=== PATIENT | female | born 1995 | race Caucasian/White ===

== ENCOUNTER 2021-08-17 11:51 | Emergency (ER) | payer BC, OTHER ==
--- NOTE | 2021-08-17 14:43 | EDM.PDOC ---
ED HPI GENERAL MEDICAL PROBLEM - General Chief Complaint: HOOKMAN Problem Stated Complaint: 7 WEEKS /BLEEDING Time Seen by Provider: 08/17/21 14:34 Source of Information: Reports: Patient History Limitations: Reports: No Limitations - History of Present Illness INITIAL COMMENTS - FREE TEXT/NARRATIVE: HISTORY AND PHYSICAL: History of present illness: The patient is a 25 year old female who presents to the ED with complaints of a blood clot upon voiding. The patient denies vaginal bleeding and does nt have any cramping. The patient has one previous live without difficulty. The patient has had a cough for a week. She has associated it with her allergies. Patient denies any fever, chills, headache, change in vision, syncope or near syncope. Denies any chest pain, back pain, or shortness of breath. Denies any abdominal pain, nausea, vomiting, diarrhea, constipation or dysuria. Has not noted any blood in urine or stool. Patient has been eating and drinking ap propriately. Review of systems: As per history of present illness and below otherwise all systems reviewed and negative. Past medical history: As per history of present illness and as reviewed below otherwise noncontributory. Surgical history: As per history of present illness and as reviewed below otherwise noncontributory. Social history: See social history for further information Family history: As per history of present illness and as reviewed below otherwise noncontributory. Physical exam: General: Well developed and well nourished. Alert and orientated x 3. Nontoxic in appearance and in no acute distress. Vital signs are stable and have been reviewed by me. Nursing notes were reviewed. HEENT: Atraumatic, normocephalic, pupils equal and reactive bilaterally, negative for conjunctival pallor or scleral icterus, mucous membranes moist, TMs normal bilaterally, throat clear, neck supple, nontender, trachea midline. No drooling or trismus noted. No meningeal signs. No hot potato voice noted. Lungs: Clear to auscultation bilaterally. No wheezes, rales, or rhonchi. Chest nontender. Normal work of breathing, no accessory muscles used. Heart: S1S2, regular rate and rhythm without overt murmur, gallops, or rubs. No JVD. No peripheral edema Abdomen: Soft, nondistended, nontender. Normoactive bowel sounds. Negative for masses or costovertebral tenderness. Pelvis: Stable nontender. Genitourinary: Normal hair distribution, no lesions, masses, or swelling. Labia majora pink, smooth, and free of lesions, excoriation, and swelling. Lania minora dark pink, moist, and free of lesions, excoriation, swelling or discharge. No discharge from urethral opening. No malodorous discharge noted from vagina. Cervix was closed. Skin: Intact, warm, dry. No lesions or rashes noted. Hematologic: No petechiae or purpra. Mucosa appropriate color and normal nail bed color and refill. Extremities: Atraumatic, moves all extremities per self without difficulty or deficits, negative for cords or calf pain. Neurovascular unremarkable. Neuro: Awake, alert, oriented. Cranial nerves II through XII unremarkable. Cerebellum unremarkable. Motor and sensory unremarkable throughout. Exam nonfocal. Psychiatric: Mood and affect are appropriate. Normal thought process. Answering questions appropriately. Notes: *This patient was seen and evaluated during the 2019 SARS-CoV-2 novel sal navirus pandemic period. Community viral transmission is ongoing at time of this encounter and the emergency department is operating under pandemic response procedures. As stated above the patient is a 25 year old who presents due to a blood clot. She denies vaginal bleeding. she denies cramping. Dr. Chambers order labs, and an US while the patient was in the waiting room. I agree with the orders. The OB US IMPRESSION: 1. Single living intrauterine gestation with crown rump length 0.59 cm which corresponds to a gestational age of 6 weeks 3 days with a sonographic due date of 04/09/2022. 2. The clinical gestational age by LMP is 7 weeks 2 days. 3. Probable corpus luteum in the left ovary. The patient's CBC is unremarkable. The patient's CMP is [place]remarkable[place] [address].0. The patient's urine does not show an infection. The patient's influenza is negative. The patient's COVID-19 is positive. I did the vaginal exam and did not see any blood in the vaginal vault. The cervical os was closed. I informed the findings of the lab results to the patient and the findings of the vaginal exam to the patient. The patient will follow up with an HOOKMAN. The patient states that she already has 1 picked up and will call them tomorrow. Patient is agreeable with this discharge plan. I have talked with the patient about today's findings, in addition to providing specific details for plan of care. Reassessment at the time of disposition demonstrates that the patient is in no acute distress. The patient is stable for discharge, counseling was provided and we discussed in great detail signs and symptoms that would prompt them to return to the Emergency Department. Medication, follow up and supportive care measures were reviewed and discussed. Voices understanding and is agreeable to plan of care. Denies any further questions or concerns at this time. Diagnostics: CBC, CMP, hCG quantitative, UA, ultrasound OB Impression: Intrauterine Plan: 1a. You were evaluated today on an emergent basis. Your concerns regarding the blood clot that you experience was evaluated with an ultra sound that IMPRESSION: 1. Single living intrauterine gestation with crown rump length 0.59 cm which corresponds to a gestational age of 6 weeks 3 days with a sonographic due date of 04/09/2022. 2. The clinical gestational age by LMP is 7 weeks 2 days. 3. Probable corpus luteum in the left ovary. Your blood work was normal. Your cervix was closed and I did not see any blood in the vagina. If you have bleeding or cramping please return to the ED. 1b. Your COVID-19 screening is positive. That means you do have the coronavirus and you are considered contagious. Your vital signs and oxygen saturation are well enough that you were able to monitor your symptoms at home. Continue to monitor for trouble breathing, new confusion or inability to arouse, bluish lips or face or any of the other symptoms we discussed -if this occurs please return to the emergency room. 2. Please self quarantine until cleared by [facility]. Inform any persons that you have been in contact with since you started becoming symptomatic that you have tested positive; they should be made aware and take the appropriate steps as needed. 3. You can take NyQuil during the evening to help get a restful night sleep. May alternate Tylenol and ibuprofen as needed for pain and fever management. 4. The [facility] department will be calling you and following up with you. The [place] COVID 19 Hotline phone number , They are open Tuesday - Tuesday 7am - 7pm. Follow up with your primary care provider for re-evaluation and re-testing after the 10 day quarantine and discuss when you should be seen. Definitive disposition and diagnosis as appropriate pending reevaluation and review of above. - Related Data Allergies Allergy/AdvReac Type Severity Reaction Status Date / Time No Known Allergies Allergy Verified 08/17/21 13:59 Home Meds: Home Meds . [No Known Home Meds] 05/16/16 [History] Past Medical History - Past Health History Medical/Surgical History: Denies Medical/Surgical History Social & Family History - Family History Family Medical History: No Pertinent Family History - Tobacco Use Second Hand Smoke Exposure: No - Caffeine Use Caffeine Use: Reports: None - Recreational Drug Use Recreational Drug Use: No ED ROS GENERAL - Review of Systems Review Of Systems: Comprehensive ROS is negative, except as noted in HPI. ED EXAM, GENERAL - Physical Exam Exam: See Below (See dictation) Course - Vital Signs Last Recorded V/S: Last Vital Signs Temp 97.3 F 08/17/21 13:55 Pulse 86 08/17/21 16:56 Resp 18 08/17/21 16:56 BP 126/86 08/17/21 16:56 Pulse Ox 97 08/17/21 16:56 - Orders/Labs/Meds Labs: Laboratory Tests 08/17/21 08/17/21 08/17/21 Range/Units 15:27 15:29 15:36 WBC 9.31 (4.0-11.0) K/uL RBC 4.81 (4.30-5.90) M/uL Hgb 14.2 (12.0-16.0) g/dL Hct 41.9 (36.0-46.0) % MCV 87.1 (80.0-98.0) fL MCH 29.5 (27.0-32.0) pg MCHC 33.9 (31.0-37.0) g/dL RDW Std Deviation 41.6 (28.0-62.0) fl RDW Coeff of Connor 13 (11.0-15.0) % Plt Count 249 (150-400) K/uL MPV 9.40 (7.40-12.00) fL Neut % (Auto) 74.8 (48.0-80.0) % Lymph % (Auto) 18.4 (16.0-40.0) % [place] % (Auto) 6.3 (0.0-15.0) % Eos % (Auto) 0.4 (0.0-7.0) % Baso % (Auto) 0.1 (0.0-1.5) % Neut # (Auto) 7.0 H (1.4-5.7) K/uL Lymph # (Auto) 1.7 (0.6-2.4) K/uL [place] # (Auto) 0.6 (0.0-0.8) K/uL Eos # (Auto) 0.0 (0.0-0.7) K/uL Baso # (Auto) 0.0 (0.0-0.1) K/uL Nucleated RBC % 0.0 /100WBC Nucleated RBCs # 0 K/uL Sodium (136-145) mmol/L Potassium (3.5-5.1) mmol/L Chloride (98-107) mmol/L Carbon Dioxide (21.0-32.0) mmol/L BUN (7.0-18.0) mg/dL Creatinine (0.6-1.0) mg/dL Est Cr Clr Drug Dosing Estimated GFR (MDRD) ml/min Glucose (74-106) mg/dL Calcium (8.5-10.1) mg/dL Total Bilirubin (0.2-1.0) mg/dL AST (15-37) IU/L ALT (14-63) IU/L Alkaline Phosphatase (46-116) U/L Total Protein (6.4-8.2) g/dL Albumin (3.4-5.0) g/dL Globulin (2.6-4.0) g/dL Albumin/Globulin Ratio (0.9-1.6) HCG, Quant mIU/mL Urine Color YELLOW Urine Appearance SLT CLOUDY Urine pH 5.5 (5.0-8.0) Ur Specific [place] >= 1.030 (1.001-1.035) Urine Protein NEGATIVE (NEGATIVE) mg/dL Urine Glucose (UA) NEGATIVE (NEGATIVE) mg/dL Urine Ketones 40 H (NEGATIVE) mg/dL Urine Occult Blood MODERATE H (NEGATIVE) Urine Nitrite NEGATIVE (NEGATIVE) Urine Bilirubin SMALL H (NEGATIVE) Urine Urobilinogen 1.0 (<2.0) EU/dL Ur Leukocyte Esterase TRACE H (NEGATIVE) Urine RBC 3-4 (0-2/HPF) Urine WBC 0-2 (0-5/HPF) Ur Epithelial Cells OCCASIONAL (NONE-FEW) Urine Bacteria FEW (NEGATIVE) Urine Mucus LIGHT (NONE-MOD) Influenza Type A RNA NEGATIVE (NEGATIVE) Influenza Type B RNA NEGATIVE (NEGATIVE) SARS-CoV-2 RNA ([place]) POSITIVE H (NEGATIVE) Blood Type 08/17/21 08/17/21 Range/Units 15:36 15:36 WBC (4.0-11.0) K/uL RBC (4.30-5.90) M/uL Hgb (12.0-16.0) g/dL Hct (36.0-46.0) % MCV (80.0-98.0) fL MCH (27.0-32.0) pg MCHC (31.0-37.0) g/dL RDW Std Deviation (28.0-62.0) fl RDW Coeff of Connor (11.0-15.0) % Plt Count (150-400) K/uL MPV (7.40-12.00) fL Neut % (Auto) (48.0-80.0) % Lymph % (Auto) (16.0-40.0) % [place] % (Auto) (0.0-15.0) % Eos % (Auto) (0.0-7.0) % Baso % (Auto) (0.0-1.5) % Neut # (Auto) (1.4-5.7) K/uL Lymph # (Auto) (0.6-2.4) K/uL [place] # (Auto) (0.0-0.8) K/uL Eos # (Auto) (0.0-0.7) K/uL Baso # (Auto) (0.0-0.1) K/uL Nucleated RBC % /100WBC Nucleated RBCs # K/uL Sodium 137 (136-145) mmol/L Potassium 4.0 (3.5-5.1) mmol/L Chloride 100 (98-107) mmol/L Carbon Dioxide 24.2 (21.0-32.0) mmol/L BUN 10 (7.0-18.0) mg/dL Creatinine 0.7 (0.6-1.0) mg/dL Est Cr Clr Drug Dosing TNP Estimated GFR (MDRD) > 60.0 ml/min Glucose 87 (74-106) mg/dL Calcium 9.2 (8.5-10.1) mg/dL Total Bilirubin 0.4 (0.2-1.0) mg/dL AST 15 (15-37) IU/L ALT 26 (14-63) IU/L Alkaline Phosphatase 86 (46-116) U/L Total Protein 8.1 (6.4-8.2) g/dL Albumin 3.6 (3.4-5.0) g/dL Globulin 4.5 H (2.6-4.0) g/dL Albumin/Globulin Ratio 0.8 L (0.9-1.6) HCG, Quant 33062.0 mIU/mL Urine Color Urine Appearance Urine pH (5.0-8.0) Ur Specific [place] (1.001-1.035) Urine Protein (NEGATIVE) mg/dL Urine Glucose (UA) (NEGATIVE) mg/dL Urine Ketones (NEGATIVE) mg/dL Urine Occult Blood (NEGATIVE) Urine Nitrite (NEGATIVE) Urine Bilirubin (NEGATIVE) Urine Urobilinogen (<2.0) EU/dL Ur Leukocyte Esterase (NEGATIVE) Urine RBC (0-2/HPF) Urine WBC (0-5/HPF) Ur Epithelial Cells (NONE-FEW) Urine Bacteria (NEGATIVE) Urine Mucus (NONE-MOD) Influenza Type A RNA (NEGATIVE) Influenza Type B RNA (NEGATIVE) SARS-CoV-2 RNA ([place]) (NEGATIVE) Blood Type A POSITIVE Departure - Departure Time of Disposition: 16:46 Disposition: Home, Self-Care 01 Condition: Good Clinical Impression: Intrauterine normal Qualifiers: Trimester: first trimester Qualified Code(s): Z34.91 - Encounter for supervision of normal , unspecified, first trimester - Discharge Information *PRESCRIPTION DRUG MONITORING PROGRAM REVIEWED*: Not Applicable *COPY OF PRESCRIPTION DRUG MONITORING REPORT IN PATIENT CELINA: Not Applicable Instructions: Care Referrals: Lu Anne DO [Primary Care Provider] - Forms: ED Department Discharge Additional Instructions: The following information is given to patients seen in the emergency department who are being discharged to home. This information is to outline your options for follow-up care. We provide all patients seen in our emergency department with a follow-up referral. The need for follow-up, as well as the timing and circumstances, are variable depending upon the specifics of your emergency department visit. If you don't have a primary care physician on staff, we will provide you with a referral. We always advise you to contact your personal physician following an emergency department visit to inform them of the circumstance of the visit and for follow-up with them and/or the need for any referrals to a consulting specialist. The emergency department will also refer you to a specialist when appropriate. This referral assures that you have the opportunity for follow-up care with a specialist. All of these measure are taken in an effort to provide you with optimal care, which includes your follow-up. Under all circumstances we always encourage you to contact your private physician who remains a resource for coordinating your care. When calling for follow-up care, please make the office aware that this follow-up is from your recent emergency room visit. If for any reason you are refused follow-up, please contact the [facility] Emergency Department at and asked to speak to the emergency department charge nurse. [facility] [address] [place] [id number] [facility] [address] [place] [id number] Plan: 1a. You were evaluated today on an emergent basis. Your concerns regarding the blood clot that you experience was evaluated with an ultra sound that IMPRESSION: 1. Single living intrauterine gestation with crown rump length 0.59 cm which corresponds to a gestational age of 6 weeks 3 days with a sonographic due date of 04/09/2022. 2. The clinical gestational age by LMP is 7 weeks 2 days. 3. Probable corpus luteum in the left ovary. Your blood work was normal. Your cervix was closed and I did not see any blood in the vagina. If you have bleeding or cramping please return to the ED. 1b. Your COVID-19 screening is positive. That means you do have the coronavirus and you are considered contagious. Your vital signs and oxygen saturation are well enough that you were able to monitor your symptoms at home. Continue to monitor for trouble breathing, new confusion or inability to arouse, bluish lips or face or any of the other symptoms we discussed -if this occurs please return to the emergency room. 2. Please self quarantine until cleared by [facility]. Inform any persons that you have been in contact with since you started becoming s ymptomatic that you have tested positive; they should be made aware and take the appropriate steps as needed. 3. You can take NyQuil during the evening to help get a restful night sleep. May alternate Tylenol and ibuprofen as needed for pain and fever management. 4. The [facility] department will be calling you and following up with you. The [place] [employer] Hotline phone number , They are open Tuesday - Tuesday 7am - 7pm. Follow up with your primary care provider for re-evaluation and re-testing after the 10 day quarantine and discuss when you should be seen. Sepsis Event Note (ED) - Evaluation Sepsis Screening Result: No Definite Risk - Focused Exam Vital Signs: Vital Signs Temp Pulse Resp BP Pulse Ox 08/17/21 16:56 86 18 126/86 97 08/17/21 13:55 97.3 F 85 20 121/88 100
--- NOTE | 2021-08-17 15:03 | US ---
INDICATION: Bleeding. LMP 06/27/2021. COMPARISON: None. TECHNIQUE: Real-time morales-scale imaging of the pelvis was performed. FINDINGS: Sonographic imaging demonstrates a single living intrauterine gestation. The embryo has a regular cardiac rate measuring 122 beats per minute. The embryo`s crown-rump length measurement of 0.59 cm corresponds to a gestational age of 6 weeks 3 days with a sonographic due date of 04/09/2022. There is a normal-appearing yolk sac. The placenta has not yet developed. No evidence of a perigestational hemorrhage. The cervix appears closed. The right ovary measures 2.6 x 2.6 x 2.4 cm and the left ovary measures 3.9 x 2.8 x 2.6 cm. Probable corpus luteum in the left ovary. No free fluid in the cul-de-sac. IMPRESSION: 1. Single living intrauterine gestation with crown rump length 0.59 cm which corresponds to a gestational age of 6 weeks 3 days with a sonographic due date of 04/09/2022. 2. The clinical gestational age by LMP is 7 weeks 2 days. 3. Probable corpus luteum in the left ovary. Dictated by Velia Corbin MD @ 08/17/2021 3:01:06 PM (Electronically Signed)
[2021-08-17 16:22] LABS: CORONAVIRUS COVID-19 NAA POSITIVE (NEGATIVE); INFLUENZA A NAA NEGATIVE (NEGATIVE); INFLUENZA B NAA NEGATIVE (NEGATIVE)
[2021-08-17 16:38] LABS: BLOOD UREA NITROGEN,BUN 10 mg/dL (7.0-18.0); CARBON DIOXIDE,CO2 24.2 mmol/L (21.0-32.0); CHLORIDE,CL 100 mmol/L (98-107); GLUCOSE RANDOM 87 mg/dL (74-106); SODIUM,NA 137 mmol/L (136-145)
[2021-08-17 16:57] VITALS: BP 126/86; PULSE 86
== END 2021-08-17 16:57 | disposition home or self-care (01) ==
LOC: MW.ED 11:51
DX: O99.891 Other specified diseases and conditions complicating pregnancy (principal); R05.9 Cough, unspecified; Z3A.01 Less than 8 weeks gestation of pregnancy; Z20.822 Contact with and (suspected) exposure to COVID-19
CPT/HCPCS: 0240U; 36415; 76801; 80053; 81001; 84702; 85025; 86900; 86901; 99283

== ENCOUNTER 2022-03-31 05:03 | Inpatient (IN) | payer BC ==
[2022-03-31] MEDS: Lactated Ringers 1,000 ML IV SCH ×3 (05:48→09:06)
[2022-03-31] MEDS ORDERED: Terbutaline 1 MG/ML SDV SUBCUT PRN (06:05)
[2022-03-31] MEDS ORDERED: Butorphanol 1 MG/ML SDV IVPUSH PRN (06:05)
[2022-03-31] MEDS ORDERED: Misoprostol 200 MCG Tab PO PRN (06:05)
[2022-03-31] MEDS ORDERED: Tranexamic Acid 1,000 MG in Sodium Chloride 0.9% 100 ML IV PRN (06:05)
[2022-03-31] MEDS ORDERED: Sodium Chloride 0.9% 2.5 ML Syringe FLUSH PRN (06:05)
[2022-03-31] MEDS ORDERED: Methylergonovine 0.2 MG/1 ML Amp IM PRN (06:05)
[2022-03-31] MEDS ORDERED: Water For Irrigation,Sterile 1,000 ML Container IRR PRN (06:05)
[2022-03-31] MEDS ORDERED: Carboprost Tromethamine 250 MCG/1 ML Amp IM PRN (06:05)
[2022-03-31] MEDS ORDERED: Sodium Chloride 0.9% 10 ML Syringe FLUSH PRN (06:05)
[2022-03-31] MEDS ORDERED: Sodium Chloride 0.9% 20 ML SDV IV PRN (06:05)
[2022-03-31] MEDS ORDERED: Ondansetron 4 MG/2 ML SDV IVPUSH PRN (06:05)
[2022-03-31] MEDS ORDERED: Lidocaine 1% 50 ML MDV INJECT PRN (06:05)
[2022-03-31] MEDS ORDERED: Oxytocin/0.9 % Sodium Chloride 30 UNIT/500 ML BAG IV SCH ×2 (06:15)
[2022-03-31] MEDS ORDERED: ePHEDrine 50 MG/ML SDV ONE (08:25)
[2022-03-31] MEDS ORDERED: Glycopyrrolate 0.2 MG/ML SDV ONE (08:25)
[2022-03-31] MEDS ORDERED: ePHEDrine 50 MG/ML SDV IVPUSH PRN (08:35)
[2022-03-31] MEDS ORDERED: Ropivacaine HCl/PF 400 MG in Premix Bag 1 BAG EPIDUR SCH (08:45)
[2022-03-31] MEDS ORDERED: Witch Hazel Medicated Pads 40/Jar TOP PRN (12:57)
[2022-03-31] MEDS ORDERED: oxyCODONE 5 MG Tab PO PRN (12:57)
[2022-03-31] MEDS ORDERED: Ibuprofen 400 MG Tab PO PRN (12:57)
[2022-03-31] MEDS ORDERED: Benzocaine/Menthol 20%-0.5% Spray 78 GM Cannister TOP PRN (12:57)
[2022-03-31] MEDS ORDERED: Bisacodyl 10 MG Supp RECTAL PRN (12:57)
[2022-03-31] MEDS ORDERED: Acetaminophen 500 MG Tab PO PRN ×2 (12:57)
[2022-03-31] MEDS ORDERED: Docusate Sodium 100 MG Cap PO PRN (12:57)
[2022-03-31] MEDS ORDERED: Ibuprofen 800 MG Tab PO PRN (12:57)
[2022-03-31] MEDS ORDERED: Lanolin 100% Cream 7 GM Tube TOP PRN (12:57)
[2022-04-01 08:18] VITALS: BP 124/86; PULSE 83
== END 2022-04-01 16:35 | disposition home or self-care (01) | DRG 560 ==
LOC: MW.OBCHECK 05:03 → MW.OB 05:05 → MW.OBCHECK 06:05 → MW.OB 06:05 → OBSVTOIN 12:57 → MW.OB 16:31
PROVIDERS: ADMIT Obstetrics & Gynecology; ATTEND Obstetrics & Gynecology
PROC: 10E0XZZ Delivery of Products of Conception, External Approach (ICD-10-PCS; principal; 2022-03-31)
PROC: 3E0R3BZ Introduction of Anesthetic Agent into Spinal Canal, Percutaneous Approach (ICD-10-PCS; 2022-03-31)
PROC: 10907ZC Drainage of Amniotic Fluid, Therapeutic from Products of Conception, Via Natural or Artificial Opening (ICD-10-PCS; 2022-03-31)
PROC: 3E033VJ Introduction of Other Hormone into Peripheral Vein, Percutaneous Approach (ICD-10-PCS; 2022-03-31)
DX: O99.214 Obesity complicating childbirth (principal); Z3A.39 39 weeks gestation of pregnancy; Z37.0 Single live birth; O77.0 Labor and delivery complicated by meconium in amniotic fluid; Z20.822 Contact with and (suspected) exposure to COVID-19
CPT/HCPCS: 36415; 51702; 59025; 59409; 82803; 85014; 85018; 85027; 86592; 86850; 86900; 86901; A9270-GY; J2590; J2795; J3490; J7120; U0002